=== PATIENT | female | born 1995 | race Two or more races ===

== ENCOUNTER 2020-12-06 | Outpatient (CLI) | payer OTHER | END 2020-12-06 13:35 | disposition home or self-care (01) | LOC: PPH VACUNA | DX: Z23 Encounter for immunization (principal) ==

== ENCOUNTER 2021-01-05 08:00 | Outpatient (CLI) | payer OTHER | END 2021-01-05 08:30 | disposition home or self-care (01) | LOC: PPH VACUNA 08:00 | DX: Z23 Encounter for immunization (principal) ==